=== PATIENT | female | born 1990 | race Caucasian/White ===

== ENCOUNTER 2016-09-30 14:16 | Emergency (ER) | payer OTHER ==
[~2016-09-30] VITALS: Ht 167.6 cm; Wt 72.6 kg
[~2016-09-30 14:16] MED LIST: ALPRAZOLAM0.5 M3 PO; ENDOCET 325 MG-1 TA1 PO; MOTRIN800 MG PO; OXYCODONE AND A1 TA7 PO; PERCOCET 325 MG1 TA2 PO; PHENERGAN25 M1 PO; SLOW FE45 MG PO; TRAMADOL50 MG PO; VICODIN5-300 PO; VYVANSE30 MG PO; ZOFRAN ODT4 MG PO
[2016-09-30] MEDS ORDERED: SERTRALINE HCL50 MG PO (14:32)
--- NOTE | 2016-09-30 14:48 | ED GI/GU/ABDOMINAL COMPLAINT ---
History of Present Illness General Chief Complaint: Abdominal Pain/Flank Pain Stated Complaint: R SIDED FLANK/RLQ ABD PAIN Source: patient Exam Limitations: no limitations Vital Signs & Intake/Output Vital Signs & Intake/Output Vital Signs Date Time Temp Pulse Resp B/P Pulse O2 O2 Flow FiO2 Ox Delivery Rate 09/30 2224 97.9 58 16 121/55 98 Room Air 09/30 1641 97.5 63 18 121/56 99 Room Air 09/30 1509 Room Air 09/30 1419 98.4 86 20 151/84 99 Room Air Allergies Coded Allergies: MDX - Amoxicillin (AMOXICILLIN) (CHILDHOOD REACTION PER PT 02/07/15) Reconcile Medications OXYCODONE HCL/ACETAMINOPHEN (Oxycodone-Acetaminophen 5-325) 5 MG-325 MG TABLET 1 TAB PO PRN PAIN (Reported) Sertraline HCl 50 MG TABLET 1 TAB PO DAILY MENTAL HEALTH (Reported) Triage Note: PT TO ED C/O RLQ PAIN SINCE YESTERDAY. C/O N/V, DENIES DIARRHEA. POOR PO INTAKE. PT SAW HER PCP YESTERDAY, WAS GIVEN RX'S FOR PAIN AND NAUSEA AND TOLD TO COME TO ED IF PAIN GOT WORSE. AFEBRILE. Triage Nurses Notes Reviewed? yes ? n Is pt currently ? No Onset: Abrupt Duration: day(s): (2), constant, continues in ED Timing: recent history Quality/Severity: moderate, sharpness, severe Location: right lower quadrant Radiation: no radiation Activities at Onset: none No Modifying Factors: none HPI: 26 FEMALE COMES INTO EMERGENCY ROOM WITH RIGHT LOWER abdominal pain. Patient reports that yesterday she was having some general periumbilical pain. Pain is now localized over the last 12 hours to the right lower quadrant. She has not eaten since yesterday. Associated vomiting. Patient denies any vaginal discharge. Patient saw her doctor prior to coming in and get a urine sample and a pelvic exam which were reportedly normal. Last time she ate was yesterday. Patient examined difficulty with any type of ambulation. (SHAHBAZ WOLFE) Past History Travel History Traveled to [place] past 21 day No Medical History Any Pertinent Medical History? see below for history Neurological: NONE EENT: NONE Cardiovascular: NONE Respiratory: NONE Gastrointestinal: H PYLORI Hepatic: NONE Renal: NONE Musculoskeletal: NONE Psychiatric: NONE Endocrine: NONE Blood Disorders: NONE Cancer(s): NONE MOTOR BRAKEMAN/Reproductive: NONE Surgical History Surgical History: N Psychosocial History What is your primary language Trinidadian Tobacco Use: Never used ETOH Use: denies use Illicit Drug Use: denies illicit drug use Family History Hx Contributory? No (SHAHBAZ WOLFE) Review of Systems Review of Systems Constitutional: Reports: no symptoms. EENTM: Reports: no symptoms. Respiratory: Reports: no symptoms. Cardiovascular: Reports: no symptoms. GI: Reports: see HPI. Genitourinary: Reports: no symptoms. Musculoskeletal: Reports: no symptoms. Skin: Reports: no symptoms. Neurological/Psychological: Reports: no symptoms. Hematologic/Endocrine: Reports: no symptoms. Immunologic/Allergic: Reports: no symptoms. All Other Systems: Reviewed and Negative (SHAHBAZ WOLFE) Physical Exam Physical Exam General Appearance: well developed/nourished, alert, awake, anxious Head: atraumatic, normal appearance Eyes: Bilateral: normal appearance, EOMI. Ears, Nose, Throat, Mouth: hearing grossly normal, moist mucous membrane Neck: normal inspection, full range of motion Respiratory: normal breath sounds, no respiratory distress Cardiovascular: regular rate/rhythm Gastrointestinal: soft, rebound, tenderness (rlq) Back: normal inspection Extremities: normal range of motion Neurologic/Psych: awake, alert, oriented x 3, normal gait Skin: intact, normal color Core Measures ACS in differential dx? No Severe Sepsis Present: No Septic Shock Present: No (SHAHBAZ WOLFE) Progress Differential Diagnosis: appendicitis, biliary colic, colon cancer, diverticulitis, ectopic , intrauterine , kidney stone, ovarian cyst, ovarian torsion, pancreatitis, PID/cervicitis, peptic ulcer, PUD/GERD, perforated viscous, threatened AB, UTI/pyelo Plan of Care: Orders Procedure Date/time Status URINE 09/30 1448 Complete URINALYSIS 09/30 1448 Complete LIPASE 09/30 1448 Complete COMPREHENSIVE METABOLIC PANEL 09/30 1448 Complete CBC WITHOUT DIFFERENTIAL 09/30 1448 Complete Laboratory Tests 09/30/16 1455: Anion Gap 11, Estimated GFR > 60, BUN/Creatinine Ratio 20.0, Glucose 99, Calcium 9.6, Total Bilirubin 0.5, AST 22, ALT 23, Alkaline Phosphatase 50, Total Protein 6.9, Albumin 4.3, Globulin 2.6, Albumin/Globulin Ratio 1.7, Lipase 137, CBC w Diff NO MAN DIFF REQ, RBC 4.30, MCV 93.4, MCH 31.8 H, RDW 12.0, MPV 8.9, Gran % 66.1, Lymphocytes % 27.9, Monocytes % 4.3, Eosinophils % 1.2, Basophils % 0.5, Absolute Granulocytes 4.6, Absolute Lymphocytes 2.0, Absolute Monocytes 0.3, Absolute Eosinophils 0.1, Absolute Basophils 0, PUBS MCHC 34.0, Urine Color YEL, Urine Clarity CLEAR, Urine pH 6.5, Ur Specific [place] 1.020, Urine Protein NEG, Urine Ketones NEG, Urine Nitrite NEG, Urine Bilirubin NEG, Urine Urobilinogen 0.2, Ur Leukocyte Esterase NEG, Ur Microscopic EXAM NOT REQUIRED, Urine Hemoglobin NEG, Urine Glucose NEG, Urine Test NEGATIVE Diagnostic Imaging: Viewed by Me: CT Scan, Ultrasound. Discussed w/RAD: CT Scan, Ultrasound. Radiology Impression: SERVICE DATE: 09/30/16 EXAM TYPE: CAT - CT ABD & PELVIS W IV CONTRAST EXAMINATION: CT ABDOMEN AND PELVIS WITH CONTRAST CLINICAL INFORMATION: Tenderness at McBurney's point, rebound tenderness, high suspicion for appendicitis. COMPARISON: None. TECHNIQUE: Multidetector volumetric imaging was performed of the abdomen and pelvis before and after the IV administration of 95 mL of Omnipaque 320 intravenous contrast. Sagittal and coronal reformatted images were obtained on the technologist's workstation. DLP: 463.37 mGy-cm. FINDINGS: LUNG BASES: The visualized lung bases are unremarkable. LIVER, GALLBLADDER, AND BILIARY TREE: The liver is normal in size, shape, and attenuation. No focal hepatic lesion or biliary ductal dilatation is present. The gallbladder is unremarkable with no evidence of radiopaque gallstones, gallbladder wall thickening, or obvious pericholecystic inflammatory changes. PANCREAS: Unremarkable. SPLEEN: Unremarkable. ADRENAL GLANDS: Unremarkable. KIDNEYS AND URETERS: The kidneys are normal in size, shape, and attenuation. No hydronephrosis, hydroureter, or calculi seen. No perinephric stranding. BLADDER: Unremarkable. GASTROINTESTINAL TRACT: The small and large bowel are unremarkable. The appendix is air-filled and unremarkable. No appendicolith is seen. The appendix is best seen on axial images 66 through 60 and coronal images 44 through 41. ABDOMINAL WALL: No significant hernia is appreciated. LYMPH NODES : Normal. VASCULAR: Unremarkable. PELVIC VISCERA: A normal anteverted uterus is seen. No abnormal adnexal mass is seen. OSSEOUS STRUCTURES: Scoliosis convex to the left is present. IMPRESSION: No evidence of appendicitis. DICTATED BY: CALDERON OROZCO MD DATE/TIME DICTATED:09/30/161554 [employer]IVATE MORTGAGE BANKER SAFE:JUSTYN DATE/TIME TRANSCRIBED:09/30/161554, SERVICE DATE: 09/30/16 EXAM TYPE: US - US-TRANSVAGINAL EXAMINATION: US TRANSVAGINAL CLINICAL INFORMATION: 26-year- old female with right lower quadrant pain. LMP 2 weeks ago. COMPARISON: CT of the abdomen and pelvis done this afternoon. TECHNIQUE: Grayscale and color Doppler imaging combined with pulse-wave Doppler interrogation and spectral analysis. Transabdominal and endovaginal probes were employed. FINDINGS: The uterus is anteverted and normal in shape and size. Uterus measures 7.5 x 4.1 x 5.5 cm. Endometrial thickness is 1 cm. The appearance is consistent with the proliferative phase of menstruation. The right ovary measures 3.3 x 2.5 x 3.4 cm. There are 3 distinct functional cysts in the right ovary. Blood flow is normal. Left ovary measures 2.9 x 1.6 x 2.2 cm. Blood flow is normal. A single functional cyst is present in this ovary. There is no free fluid. IMPRESSION: Unremarkable examination. Initial ED EKG: none Comments: 09/30/2016 7:13:30 PM Surgery is currently in the OR and will be evaluating the patient after they get out of the OR. I spoke with radiology again and they confirm that the entire appendix is normal. Best viewed on slides 43/44 in the 104 image group. Patient is in agreement with plan. Patient understands that she'll be waiting a few hours for surgery to come and evaluate her. 09/30/2016 9:50:37 PM Still waiting on surgery. Surgery is still in the OR. 09/30/2016 10:22:29 PM I went back in to reevaluate the patient. She feels significantly better. Repeat abdominal exam has much improved. No more rebound tenderness. Very mild pain in the right lower quadrant. Patient has not received pain medication in over an hour. I discussed with patient the options. Patient was offered to stay and wait for surgery still but she rather go home. I explained to the patient that we should do a clear liquid diet for the next 24 hours and that she needs to return immediately if she has any worsening of symptoms. If symptoms in the right lower quadrant persist and she needs to return for repeat blood work and surgery consultation. Patient already had an outpatient pelvic exam performed that was normal according to the patient. Patient understands and agrees with plan of care. Patient would rather go home at this time since she feels significantly better. case discussed with dr guallpa. (TREVOR ROBERTS,SHAHBAZ) Departure Departure Disposition: HOME OR SELF CARE Condition: Stable Clinical Impression Primary Impression: Abdominal pain Referrals: FLORENCIO GARVEY,TANNER Dubois (PCP/Family) Additional Instructions: Return to the emergency room immediately if any concerns worsening symptoms. Clear liquid diet for the next 24 hours. If your symptoms of right lower abdominal pain persist or get worse she needs to return for further evaluation. Currently there is no evidence of appendicitis. There is no ovarian abnormality. However if symptoms persist you will require a surgical consultation. Take Motrin 800 mg 3 times a day. Please go over all results of today's visit with your primary care doctor. Contact your primary care doctor to let them know you were here in the emergency room. There may be nonspecific findings which may not be related to your visit today here in the emergency room but may require further evaluation and chronic monitoring by your primary care doctor. If you had a laceration today the chance of foreign body always remains. You should follow-up with your primary care doctor for recheck in 3-5 days for a wound check. If you had an x-ray done there is a chance that a fracture could have been missed on initial read and you should follow-up with your primary care doctor for repeat x-rays if symptoms persist. If your blood pressure was elevated here in the emergency room please have rechecked by her primary care doctor within the next 48 hours by your primary care doctor. If you were prescribed a narcotic here in the emergency room or any type of controlled substances you're not allowed to drive while taking this medication or operate any type of heavy machinery. Narcotics can make you feel lightheaded dizziness nausea and can cause constipation. You may need to picking belt operator a stool softener. Thank you for choosing [facility] emergency room. Please return to the emergency room immediately if you have any other concerns worsening of symptoms. Departure Forms: Customer Survey General Discharge Information (SHAHBAZ WOLFE) PA/TRUCK RAILROAD AND BUS MOTOR MECHANIC Co-Sign Statement Statement: ED Attending supervision documentation- [] I saw and evaluated the patient. I have also reviewed all the pertinent lab results and diagnostic results. I agree with the findings and the plan of care as documented in the PA's/TRUCK RAILROAD AND BUS MOTOR MECHANIC's documentation. [x] I have reviewed the ED Record and agree with the PA's/TRUCK RAILROAD AND BUS MOTOR MECHANIC's documentation. [] Additions or exceptions (if any) to the PAs/TRUCK RAILROAD AND BUS MOTOR MECHANIC's note and plan are summarized below: [] (MARTHA GARVEY,JUAN Holden)
[2016-09-30 15:07] LABS: ABSOLUTE BASOPHIL COUNT 0 /CUMM (0.0-0.2); ABSOLUTE EOSINOPHIL COUNT 0.1 /CUMM (0.0-0.7); ABSOLUTE GRANULOCYTE CT 4.6 /CUMM (1.4-6.5); ABSOLUTE MONOCYTE COUNT 0.3 /CUMM (0.10-0.60); BASOPHIL % 0.5 % (0.0-2.0); EOSINOPHIL % 1.2 % (0-5); GRANULOCYTE % 66.1 % (42.2-75.2); HEMATOCRIT 40.2 % (37-47); MEAN CORPUSCULAR HGB 31.8 PG (27.0-31.0); MEAN CORPUSCULAR VOLUME 93.4 FL (81.0-99.0); MEAN PLATELET VOLUME 8.9 FL (7.4-10.4); PLATELET COUNT 190 /CUMM (130-400)
--- NOTE | 2016-09-30 17:10 | CT SCAN REPORT ---
EXAMINATION: CT ABDOMEN AND PELVIS WITH CONTRAST CLINICAL INFORMATION: Tenderness at McBurney's point, rebound tenderness, high suspicion for appendicitis. COMPARISON: None. TECHNIQUE: Multidetector volumetric imaging was performed of the abdomen and pelvis before and after the IV administration of 95 mL of Omnipaque 320 intravenous contrast. Sagittal and coronal reformatted images were obtained on the technologist's workstation. DLP: 463.37 mGy-cm. FINDINGS: LUNG BASES: The visualized lung bases are unremarkable. LIVER, GALLBLADDER, AND BILIARY TREE: The liver is normal in size, shape, and attenuation. No focal hepatic lesion or biliary ductal dilatation is present. The gallbladder is unremarkable with no evidence of radiopaque gallstones, gallbladder wall thickening, or obvious pericholecystic inflammatory changes. PANCREAS: Unremarkable. SPLEEN: Unremarkable. ADRENAL GLANDS: Unremarkable. KIDNEYS AND URETERS: The kidneys are normal in size, shape, and attenuation. No hydronephrosis, hydroureter, or calculi seen. No perinephric stranding. BLADDER: Unremarkable. GASTROINTESTINAL TRACT: The small and large bowel are unremarkable. The appendix is air-filled and unremarkable. No appendicolith is seen. The appendix is best seen on axial images 66 through 60 and coronal images 44 through 41. ABDOMINAL WALL: No significant hernia is appreciated. LYMPH NODES: Normal. VASCULAR: Unremarkable. PELVIC VISCERA: A normal anteverted uterus is seen. No abnormal adnexal mass is seen. OSSEOUS STRUCTURES: Scoliosis convex to the left is present. IMPRESSION: No evidence of appendicitis.
--- NOTE | 2016-09-30 18:44 | ULTRASOUND REPORT ---
EXAMINATION: US TRANSVAGINAL CLINICAL INFORMATION: 26-year-old female with right lower quadrant pain. LMP 2 weeks ago. COMPARISON: CT of the abdomen and pelvis done this afternoon. TECHNIQUE: Grayscale and color Doppler imaging combined with pulse-wave Doppler interrogation and spectral analysis. Transabdominal and endovaginal probes were employed. FINDINGS: The uterus is anteverted and normal in shape and size. Uterus measures 7.5 x 4.1 x 5.5 cm. Endometrial thickness is 1 cm. The appearance is consistent with the proliferative phase of menstruation. The right ovary measures 3.3 x 2.5 x 3.4 cm. There are 3 distinct functional cysts in the right ovary. Blood flow is normal. Left ovary measures 2.9 x 1.6 x 2.2 cm. Blood flow is normal. A single functional cyst is present in this ovary. There is no free fluid. IMPRESSION: Unremarkable examination.
[2016-09-30 22:24] VITALS: BP 121/55
[2016-10-01] MEDS ORDERED: TRAMADOL HCL50 M1 PO (17:01)
[2016-10-01] MEDS ORDERED: SEASONIQUE 0.11 EACH PO (17:02)
[2016-10-01] MEDS ORDERED: PROMETHAZINE HC25 M3 PO ×2 (17:48→18:29)
[2016-10-01] MEDS ORDERED: NORCO 5-325 TA1 EACH PO ×2 (17:48→18:29)
== END 2016-09-30 22:29 ==
LOC: ERH 14:16
PROVIDERS: Physician Assistant Medical
DX: R10.31 Right lower quadrant pain (principal)
CPT/HCPCS: 74177; 81003; 81025; 96361; 96374; 96375; 96376; J2405; J2550; J2765

== ENCOUNTER 2016-10-01 11:21 | Emergency (ER) | payer OTHER ==
[~2016-10-01] VITALS: Ht 168.9 cm; Wt 74.8 kg
[~2016-10-01 11:21] MED LIST changes: +SERTRALINE HCL50 MG PO
--- NOTE | 2016-10-01 11:57 | ED GI/GU/ABDOMINAL COMPLAINT ---
History of Present Illness General Chief Complaint: Abdominal Pain/Flank Pain Stated Complaint: APPENDICITIS/SEEN HERE YESTERDAY Source: patient, old records Exam Limitations: no limitations Vital Signs & Intake/Output Vital Signs & Intake/Output Vital Signs Date Time Temp Pulse Resp B/P Pulse O2 O2 Flow FiO2 Ox Delivery Rate 10/01 1600 97.7 58 16 102/58 97 Room Air 10/01 1127 97.1 65 20 136/81 99 Room Air Allergies Coded Allergies: amoxicillin (Intermediate, HIVES 10/01/16) Reconcile Medications L-Norgest/E.estradion-E.estrad ([place] 0.15-0.03-0.01 Tab) 0.15 MG-30 MCG ( 84)/10 MCG (7) TBDSPK.[id number] 1 TAB PO DAILY CONTROL (Reported) Sertraline HCl 50 MG TABLET 1 TAB PO DAILY MENTAL HEALTH (Reported) Tramadol HCl 50 MG TABLET 1 TAB PO TID PRN PAIN (Reported) Triage Note: TRIAGE: PT TO ER C/C RLQ ABD PAIN, ONSET YESTERDAY. WAS SEEN HERE FOR SAME LAST NIGHT. STATES THEY WANTED HER TO SEE THE SURGEON BUT IT WAS GOING TO BE A LONGER WAIT AND SINCE SHE WAS FEELING BETTER AT THAT TIME IF SHE WANTED TO GO HOME SHE COULD. Triage Nurses Notes Reviewed? yes ? n Is pt currently ? No HPI: Patient presents for evaluation of severe right-sided abdominal pain. She was evaluated yesterday in the emergency department for the same pain but no clear etiology was determined. She was told to return to the emergency department for reevaluation if she did not improve. She states it is a constant severe sharp stabbing pain with associated diaphoresis. She has also had multiple episodes of non-bloody nonbilious vomiting and urinary frequency. She denies diarrhea fever or cold symptoms. The pain does not change with eating. 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 She drinks alcohol rarely and states she uses marijuana occasionally (last used one week ago). Past History Travel History Traveled to [place] past 21 day No Medical History Any Pertinent Medical History? 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 No Review of Systems Review of Systems Constitutional: Reports: no symptoms. EENTM: Reports: no symptoms. Respiratory: Reports: no symptoms. Cardiovascular: Reports: no symptoms. GI: Reports: see HPI. Genitourinary: Reports: no symptoms. Musculoskeletal: Reports: no symptoms. Skin: Reports: no symptoms. Neurological/Psychological: Reports: no symptoms. Hematologic/Endocrine: Reports: no symptoms. Immunologic/Allergic: Reports: no symptoms. All Other Systems: Reviewed and Negative Physical Exam Physical Exam Gastrointestinal: SEE BELOW Comments: Gen.: Well-nourished, well-developed, no acute respiratory distress. Mild to moderate discomfort secondary to right-sided abdominal pain. Head: Normocephalic, atraumatic. Eyes: Normal inspection bilaterally Ears: Normal inspection bilaterally Nose: Normal inspection Throat/mouth : Moist mucosa Neck: Supple, full range of motion, no goiter Heart: Regular rate and rhythm, no murmurs rubs or gallops Lungs: Clear to auscultation bilaterally with normal air entry Chest: Nontender Back: Normal range of motion Abdomen: Soft, right upper quadrant abdominal tenderness with brief voluntary guarding but no rebound, no palpable masses, nondistended, normal bowel sounds Extremities: Normal range of motion grossly, equal radial pulses, no cyanosis clubbing or edema Neurologic: Cranial nerves grossly intact, speech is clear Skin: warm and dry Psychiatric: Calm, cooperative, no apparent delusions or hallucinations Core Measures ACS in differential dx? No Severe Sepsis Present: No Septic Shock Present: No Progress Differential Diagnosis: BILIARY COLIC, RENAL COLIC, HEPATITIS, PANCREATITIS, PEPTIC ULCER DISEASE Plan of Care: Orders Procedure Date/time Status URINALYSIS 10/01 1156 Complete LIPASE 10/01 1156 Complete COMPREHENSIVE METABOLIC PANEL 10/01 1156 Complete CBC WITHOUT DIFFERENTIAL 10/01 115 Complete Laboratory Tests 10/01/16 1201: Urine Color YEL, Urine Clarity CLEAR, Urine pH 6.0, Ur Specific [place] 1.010, Urine Protein NEG, Urine Ketones NEG, Urine Nitrite NEG, Urine Bilirubin NEG, Urine Urobilinogen 0.2, Ur Leukocyte Esterase NEG, Ur Microscopic EXAM NOT REQUIRED, Urine Hemoglobin NEG, Urine Glucose NEG 10/01/16 1200: Anion Gap 14, Estimated GFR > 60, BUN/Creatinine Ratio 18.8, Glucose 78, Calcium 9.2, Total Bilirubin 0.5, AST 21, ALT 27, Alkaline Phosphatase 43, Total Protein 6.3, Albumin 3.8, Globulin 2.5, Albumin/Globulin Ratio 1.5, Lipase 132, CBC w Diff NO MAN DIFF REQ, RBC 4.35, MCV 93.4, MCH 31.9 H, RDW 12.4, MPV 9.5, Gran % 62.1, Lymphocytes % 30.7, Monocytes % 5.2, Eosinophils % 1.7, Basophils % 0.3, Absolute Granulocytes 3.8, Absolute Lymphocytes 1.9, Absolute Monocytes 0.3, Absolute Eosinophils 0.1, Absolute Basophils 0, PUBS MCHC 34.1 Diagnostic Imaging: Discussed w/RAD: CT Scan. Radiology Impression: PATIENT: LUZ MARIA BRAUN PRESENT AGE: 26 PATIENT ACCOUNT NO: [id number] : 91 LOCATION: [facility] ORDERING PHYSICIAN: RAY HIRSCH MD SERVICE DATE: 10/01/16 EXAM TYPE: CAT - CT ABD & PELVIS W ORAL & IV CO EXAMINATION: CT ABDOMEN AND PELVIS WITH CONTRAST CLINICAL INFORMATION: Right-sided abdominal pain. COMPARISON: CT abdomen and pelvis from 02/07/2015 and 09/30/2016. TECHNIQUE: Multidetector volumetric imaging was performed of the abdomen and pelvis before and after the IV administration of 95 mL of Optiray 320 intravenous contrast. Sagittal and coronal reformatted images were obtained on the technologist's workstation. DLP: 423 mGy-cm. FINDINGS: LUNG BASES: 0.3 cm noncalcified nodule within the left lower lobe is unchanged compared to 02/07/2015, consistent with a benign nodule. LIVER, GALLBLADDER, AND BILIARY TREE: Normal. PANCREAS: Normal. SPLEEN: Normal. ADRENAL GLANDS: Normal. KIDNEYS AND URETERS: The kidneys are normal in size, shape, and attenuation. No hydronephrosis, hydroureter, or calculi. No perinephric stranding. BLADDER: Unremarkable. GASTROINTESTINAL TRACT: Loops of bowel remain normal in caliber. The terminal ileum is normal. No evidence of acute inflammation or obstruction along the gastrointestinal tract. The appendix remains normal in size and measures 0.5 cm diameter. There is no evidence of appendiceal wall thickening or periappendiceal fat stranding. No ascites or pneumoperitoneum. ABDOMINAL WALL: Unremarkable. LYMPH NODES: No pathologic sized lymph nodes within the abdomen or pelvis. VASCULAR: Abdominal aorta is normal in caliber and the celiac trunk, SMA, CHIVO and renal arteries are widely patent. PELVIC VISCERA: The uterus and ovaries are normal in appearance. There are no pathologic fluid collections within the pelvis. Multiple phleboliths are present within the lower pelvis. OSSEOUS STRUCTURES: No acute osseous abnormalities. IMPRESSION: No evidence of appendicitis. No acute imaging findings within the abdomen or pelvis compared to 09/30/2016. 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 < Electronically signed in Other Vendor System> SIGNED BY: ROSY MORSE MD 10/01/16 3033 Initial ED EKG: none Comments: 10/01/2016 12:56:54 PM they since case discussed with Dr. Hunter, who has reviewed the patient's prior ED visit and will discuss the patient's case with the radiologist regarding additional imaging studies. 10/01/2016 1:36:16 PM pt evaluated by Dr. Hunter. CAT scan pending. 10/01/2016 5:12:29 PM patient's case discussed with Dr. Hunter. The patient 's abdominal pain is unclear at this point. However patient appears stable for outpatient management. Departure Departure Disposition: HOME OR SELF CARE Condition: Stable Clinical Impression Primary Impression: Nonspecific abdominal pain Referrals: TANNER MATIAS MD (PCP/Family) Additional Instructions: Phenergan as needed for nausea or vomiting, [place] as needed for pain. Follow-up with your primary care doctor within 48 hours for reevaluation. Return if any concerns or sudden worsening. Please note that there might be incidental findings in your evaluation that are unrelated to the current emergency department visit. Please notify your primary care doctor about this emergency department visit in order to obtain and review all of the testing performed so that these incidental findings can be monitored as needed. If you had an x-ray performed, please understand that some fractures may not be seen on the initial set of x-rays. If your symptoms persist you might need a repeat set of x-rays to check for such a fracture. If you had a laceration evaluated, please understand that foreign bodies such as glass or wood may not be visible to the naked eye or on plain x-rays. If the wound becomes red, swollen, increasingly more painful or if there is any drainage from the wound, please have it reevaluated by a physician for the possibility of a retained foreign body. Thank you for choosing the [facility] Emergency Department for your care. It was a pleasure to serve you today. Ray Hirsch M.D. [facility] Departure Forms: Customer Survey General Discharge Information
[2016-10-01 12:37] LABS: ABSOLUTE BASOPHIL COUNT 0 /CUMM (0.0-0.2); ABSOLUTE EOSINOPHIL COUNT 0.1 /CUMM (0.0-0.7); ABSOLUTE GRANULOCYTE CT 3.8 /CUMM (1.4-6.5); ABSOLUTE LYMPH COUNT 1.9 /CUMM (1.2-3.4); ABSOLUTE MONOCYTE COUNT 0.3 /CUMM (0.10-0.60); BASOPHIL % 0.3 % (0.0-2.0); EOSINOPHIL % 1.7 % (0-5); GRANULOCYTE % 62.1 % (42.2-75.2); HEMATOCRIT 40.6 % (37-47); MEAN CORPUSCULAR HGB 31.9 PG (27.0-31.0); MEAN CORPUSCULAR HGB CONC 34.1 G/DL (33.0-37.0); MEAN CORPUSCULAR VOLUME 93.4 FL (81.0-99.0); MEAN PLATELET VOLUME 9.5 FL (7.4-10.4); PLATELET COUNT 185 /CUMM (130-400); RBC DISTRIBUTION WIDTH 12.4 % (11.5-14.5); RED BLOOD CELL CT 4.35 /CUMM (4.20-5.40); WHITE BLOOD CELL COUNT 6.1 /CUMM (4.8-10.8)
--- NOTE | 2016-10-01 16:09 | Cons- General Surgery ---
See Addendum General Information and HPI Consulting Request Date of Consult: 10/01/16 Requested By: Duran Hirsch MD Source of Information: patient History of Present Illness: CC: abdominal pain HPI: 26-year-old nondiabetic nonsmoker here again the ER from last night for persistent right lower quadrant pain, the pain started yesterday the day prior she noted decreased appetite but no pain. Initially the pain was more in the middle but then more in the right lower quadrant she doesn't recall pain like this before she has a history of workup and treatment for H. pylori no recent flulike symptoms no recent antibiotics her mother had appendicitis when she was younger, no unusual meals or straining she had some sweats overnight didn't check if fever, she also had nausea vomiting several times she says the pain is worse today than yesterday it affects her when walking. Last menstrual period 5 days ago. Otherwise no changes in bowel habits or weight. I've reviewed the [facility]. No history of GERD, PUD, bleeding problems, heart disease or issues with anesthesia. 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 Surgical History Pertinent Surgical History: none Psychosocial History ETOH Use: occasional use Illicit Drug Use: denies illicit drug use Review of Systems Review of Systems: Constitutional: No fever or weight loss ENMT: No sore throat Cardiovascular: No chest pain, palpitations or leg swelling Respiratory: No shortness of breath, cough, or sputum or dyspnea on exertion GI: No GERD or bleeding per rectum : No dysuria or hematuria, but feels like she doesn't fully empty her bladder when she PAs since this pain started Musculoskeletal: No new muscle weakness, bone or joint pain Skin / Breast: No jaundice, rashes or itching Psychiatric: No history of drug or alcohol abuse no depression or anxiety Hematologic / lymphatic system: No problems with excessive bleeding, bruising, or blood clots Exam & Diagnostic Data Vital Signs and I&O Vital Signs Date Time Temp Pulse Resp B/P Pulse O2 O2 Flow FiO2 Ox Delivery Rate 10/01 1600 97.7 58 16 102/58 97 Room Air 10/01 1127 97.1 65 20 136/81 99 Room Air Intake & Output 10/01 1600 10/01 0800 10/01 0000 09/30 1600 09/30 0800 09/30 0000 Intake Total 50 Output Total Balance 50 Intake, IV 50 Patient 165 lb Weight Physical Exam: Constitutional: pleasant, no acute distress, conversant Eyes: sclera anicteric ENMT: ears and nose atraumatic, moist mucous membranes, good dentition, no lip lesions Neck: Supple, trachea is midline, no cervical or supraclavicular adenopathy and no palpable thyromegaly Cardiovascular: S1, S2, no murmurs, no peripheral edema Respiratory: clear to auscultation with normal respiratory effort and no intercostal retractions GI: abdomen soft, right lower quadrant tender to moderate palpation, no right upper quadrant tenderness, nondistended, no palpable hepatosplenomegaly Extremities / lymphatics: symmetrically warm, free range of motion no peripheral edema, no cervical, supraclavicular, axillary, or inguinal adenopathy Musculoskeletal: Did not evaluate gait and station, no digital cyanosis, good muscle strength and tone no atrophy, motor grossly 5 out of 5 throughout Skin: no jaundice, no rashes warm, nondiaphoretic, no areas of erythema or induration Psychiatric: mood and affect are appropriate and alert and oriented to person place and time Last 24 Hours of Labs: Laboratory Tests 10/01 10/01 1201 1200 Chemistry Sodium (137 - 145 mmol/L) 140 Potassium (3.5 - 5.1 mmol/L) 4.4 Chloride (98 - 107 mmol/L) 100 Carbon Dioxide (22 - 30 mmol/L) 27 Anion Gap (5 - 16) 14 BUN (7 - 17 mg/dL) 15 Creatinine (0.5 - 1.0 mg/dL) 0.8 Estimated GFR (>60 ml/min) > 60 BUN/Creatinine Ratio (7 - 25 %) 18.8 Glucose (65 - 99 mg/dL) 78 Calcium (8.4 - 10.2 mg/dL) 9.2 Total Bilirubin (0.2 - 1.3 mg/dL) 0.5 AST (14 - 36 U/L) 21 ALT (9 - 52 U/L) 27 Alkaline Phosphatase (<127 U/L) 43 Total Protein (6.3 - 8.2 g/dL) 6.3 Albumin (3.5 - 5.0 g/dL) 3.8 Globulin (1.9 - 4.2 gm/dL) 2.5 Albumin/Globulin Ratio (1.1 - 2.2 %) 1.5 Lipase (23 - 300 U/L) 132 Hematology CBC w Diff NO MAN DIFF REQ WBC (4.8 - 10.8 /CUMM) 6.1 RBC (4.20 - 5.40 /CUMM) 4.35 Hgb (12.0 - 16.0 G/DL) 13.9 Hct (37 - 47 %) 40.6 MCV (81.0 - 99.0 FL) 93.4 MCH (27.0 - 31.0 PG) 31.9 H RDW (11.5 - 14.5 %) 12.4 Plt Count (130 - 400 /CUMM) 185 MPV (7.4 - 10.4 FL) 9.5 Gran % (42.2 - 75.2 %) 62.1 Lymphocytes % (20.5 - 51.1 %) 30.7 Monocytes % (1.7 - 9.3 %) 5.2 Eosinophils % (0 - 5 %) 1.7 Basophils % (0.0 - 2.0 %) 0.3 Absolute Granulocytes (1.4 - 6.5 /CUMM) 3.8 Absolute Lymphocytes (1.2 - 3.4 /CUMM) 1.9 Absolute Monocytes (0.10 - 0.60 /CUMM) 0.3 Absolute Eosinophils (0.0 - 0.7 /CUMM) 0.1 Absolute Basophils (0.0 - 0.2 /CUMM) 0 PUBS MCHC (33.0 - 37.0 G/DL) 34.1 Urines Urine Color (YEL,AMB,STR) YEL Urine Clarity (CLEAR) CLEAR Urine pH (5.0 - 8.0) 6.0 Ur Specific [place] (1.001 - 1.035) 1.010 Urine Protein (NEG,<30 MG/DL) NEG Urine Ketones (NEG) NEG Urine Nitrite (NEG) NEG Urine Bilirubin (NEG) NEG Urine Urobilinogen (0.1 - 1.0 EU/dl) 0.2 Ur Leukocyte Esterase (NEG) NEG Ur Microscopic EXAM NOT REQUIRED Urine Hemoglobin (NEG) NEG Urine Glucose (N MG/DL) NEG I reviewed the CT scan of her abdomen and pelvis on PACS myself from yesterday night also compared it to a previous CT from 2015 both show a curled not thickened or inflamed gas filled appendix in the right lower quadrant. Assessment/Plan Assessment/Plan Impression is right lower quadrant pain suspicious for acute appendicitis but there is no obvious radiologic evidence of, no leukocytosis and she is not febrile she doesn't recall exactly but on review 2015 she also had imaging which showed a normal appendix. Some ovarian cysts are noted but these could be physiologic there is no obvious free fluid. At this point there are no systemic signs of sepsis or obvious signs of imminent rupture so after discussion will 2 more workup have to weigh the risks benefits of another CT scan versus an operation for normal appendix, if so her pain could persist. We await repeat CT scan with IV and oral contrast. If it is appendicitis there should be some change seen on imaging since her pain is worse in it's been 2 days now without treatment. Problem List: 1. Right lower quadrant pain Consult Acknowledgment - Thank you for your consult request.
--- NOTE | 2016-10-01 16:45 | CT SCAN REPORT ---
EXAMINATION: CT ABDOMEN AND PELVIS WITH CONTRAST CLINICAL INFORMATION: Right-sided abdominal pain. COMPARISON: CT abdomen and pelvis from 02/07/2015 and 09/30/2016. TECHNIQUE: Multidetector volumetric imaging was performed of the abdomen and pelvis before and after the IV administration of 95 mL of Optiray 320 intravenous contrast. Sagittal and coronal reformatted images were obtained on the technologist's workstation. DLP: 423 mGy-cm. FINDINGS: LUNG BASES: 0.3 cm noncalcified nodule within the left lower lobe is unchanged compared to 02/07/2015, consistent with a benign nodule. LIVER, GALLBLADDER, AND BILIARY TREE: Normal. PANCREAS: Normal. SPLEEN: Normal. ADRENAL GLANDS: Normal. KIDNEYS AND URETERS: The kidneys are normal in size, shape, and attenuation. No hydronephrosis, hydroureter, or calculi. No perinephric stranding. BLADDER: Unremarkable. GASTROINTESTINAL TRACT: Loops of bowel remain normal in caliber. The terminal ileum is normal. No evidence of acute inflammation or obstruction along the gastrointestinal tract. The appendix remains normal in size and measures 0.5 cm diameter. There is no evidence of appendiceal wall thickening or periappendiceal fat stranding. No ascites or pneumoperitoneum. ABDOMINAL WALL: Unremarkable. LYMPH NODES: No pathologic sized lymph nodes within the abdomen or pelvis. VASCULAR: Abdominal aorta is normal in caliber and the celiac trunk, SMA, CHIVO and renal arteries are widely patent. PELVIC VISCERA: The uterus and ovaries are normal in appearance. There are no pathologic fluid collections within the pelvis. Multiple phleboliths are present within the lower pelvis. OSSEOUS STRUCTURES: No acute osseous abnormalities. IMPRESSION: No evidence of appendicitis. No acute imaging findings within the abdomen or pelvis compared to 09/30/2016.
[2016-10-01] MEDS ORDERED: TRAMADOL HCL50 M1 PO (17:01)
[2016-10-01] MEDS ORDERED: SEASONIQUE 0.11 EACH PO (17:02)
[2016-10-01] MEDS ORDERED: PROMETHAZINE HC25 M3 PO ×2 (17:48→18:29)
[2016-10-01] MEDS ORDERED: NORCO 5-325 TA1 EACH PO ×2 (17:48→18:29)
[2016-10-01 18:24] VITALS: BP 119/71
== END 2016-10-01 18:37 ==
LOC: ERH 11:21
PROVIDERS: Emergency Medicine
DX: R10.11 Right upper quadrant pain (principal); R11.10 Vomiting, unspecified; R35.0 Frequency of micturition
CPT/HCPCS: 74177; 81003; 96374; 96375; 96376; J2550

== ENCOUNTER 2016-10-11 20:51 | Emergency (ER) | payer OTHER ==
[~2016-10-11] VITALS: Ht 170.2 cm; Wt 74.8 kg
[~2016-10-11 20:51] MED LIST changes: +NORCO 5-325 TA1 EACH PO; +PROMETHAZINE HC25 M3 PO; +SEASONIQUE 0.11 EACH PO; +TRAMADOL HCL50 M1 PO
[2016-10-11 20:55] VITALS: BP 152/90
[2016-10-11] MEDS ORDERED: CLEOCIN HCL300 M1 PO (21:39)
[2016-10-11] MEDS ORDERED: NORCO 5-325 TA1 EACH PO (21:39)
--- NOTE | 2016-10-11 21:40 | ED THROAT/DENTAL COMPLAINT ---
History of Present Illness General Chief Complaint: Sore Throat, Dental Pain Stated Complaint: ?DENTAL INFECTION, LEFT SIDED FACIAL SWELLING Source: patient, old records Exam Limitations: no limitations Vital Signs & Intake/Output Vital Signs & Intake/Output Vital Signs Date Time Temp Pulse Resp B/P Pulse O2 O2 Flow FiO2 Ox Delivery Rate 10/11 2054 97.1 91 18 152/90 97 Room Air Allergies Coded Allergies: amoxicillin (Intermediate, HIVES 10/01/16) Reconcile Medications Clindamycin HCl (Cleocin HCl) 300 MG CAPSULE 1 CAP PO TID infection Hydrocodone/Acetaminophen ([place] 5-325 Tablet) 5 MG-325 MG TABLET 1-2 TAB PO Q6P PRN PAIN Hydrocodone/Acetaminophen ([place] 5-325 Tablet) 5 MG-325 MG TABLET 1 TAB PO TID PRN pain L-Norgest/E.estradion-E.estrad ([place] 0.15-0.03-0.01 Tab) 0.15 MG-30 MCG ( 84)/10 MCG (7) [id number] 1 TAB PO DAILY CONTROL (Reported) Promethazine HCl 25 MG TABLET 1 TAB PO Q6P PRN NAUSEA/VOMITING Sertraline HCl 50 MG TABLET 1 TAB PO DAILY MENTAL HEALTH (Reported) Tramadol HCl 50 MG TABLET 1 TAB PO TID PRN PAIN (Reported) Triage Note: PT TO ED C/O DENTAL INFECTION TO LOWER LEFT TOOTH. PAIN AND SWELLING STARTED TODAY. DID HAVE ROOT CANAL 2 DAYS AGO ON RT UPPER SIDE. AFEBRILE IN TRIAGE Triage Nurses Notes Reviewed? yes : No Patient currently breastfeeds: No HPI: 26-year-old female here with complaints of left lower dental pain that started 2 days ago. She is 3 days status post root canal surgery on the right upper and has been doing well with that. She is on Tylenol with codeine however it is not helping her left lower dental pain. She previously has dental caries in that area and a dental extraction of the first molar. She has pain with eating and palpation. She denies any facial swelling fever or flulike illness. Pain is throbbing and severe Past History Travel History Traveled to [place] past 21 day No Medical History Any Pertinent Medical History? 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 No Review of Systems Review of Systems Constitutional: Reports: see HPI. EENTM: Reports: see HPI. Respiratory: Reports: no symptoms. Cardiovascular: Reports: no symptoms. GI: Reports: no symptoms. Genitourinary: Reports: no symptoms. Musculoskeletal: Reports: no symptoms. Skin: Reports: no symptoms. Neurological/Psychological: Reports: no symptoms. Hematologic/Endocrine: Reports: no symptoms. Immunologic/Allergic: Reports: no symptoms. All Other Systems: Reviewed and Negative Physical Exam Physical Exam General Appearance: well developed/nourished Mouth/Throat: pharynx normal Comments: Well-developed well-nourished no apparent distress. HEENT: Atraumatic, extraocular motion intact Intraoral exam, right side, no swelling, no abscess. Left side, lower, first molar is extracted previously, second molar has a filling in place, gum is mildly swollen bilaterally without any abscess. No facial swelling Neck: Supple, no lymphadenopathy Back: Nontender Respiratory: No respiratory distress Extremities: No edema, full range of motion Neuro: Alert and oriented x3 Psych: Mood affect normal, normal memory normal judgment. Skin: Warm and dry, Core Measures ACS in differential dx? No Severe Sepsis Present: No Septic Shock Present: No Progress Differential Diagnosis: aspirated tooth, carious tooth, epiglottitis, Ludwigs angina, meningitis, odontogenic abscess, timoteo-tonsillar abscess, pharyngeal for. body, stomatitis/gingivitis, strep pharyngitis, tooth fracture Plan of Care: Possible early dental infection, we'll place on Cleocin and patient is requesting Vicodin for her pain as this is where her in the past. She'll follow -up with her dentist, she has an appointment in 2 days Departure Departure Disposition: HOME OR SELF CARE Condition: Stable Clinical Impression Primary Impression: Dental infection Referrals: TANNER MATIAS MD (PCP/Family) Additional Instructions: Follow-up with your dentist in next few days. Take antibiotics as directed for possible infection and take Vicodin as needed for pain Departure Forms: Customer Survey General Discharge Information Prescriptions: Current Visit Scripts Clindamycin HCl (Cleocin HCl) 1 CAP PO TID #21 CAP Hydrocodone/Acetaminophen ([place] 5-325 Tablet) 1 TAB PO TID PRN pain #10 TAB
== END 2016-10-11 21:46 ==
LOC: ERH 20:51
DX: K04.7 Periapical abscess without sinus (principal)

== ENCOUNTER 2016-11-26 09:30 | Emergency (ER) | payer OTHER ==
[~2016-11-26] VITALS: Ht 170.2 cm; Wt 72.6 kg
[~2016-11-26 09:30] MED LIST changes: +CLEOCIN HCL300 M1 PO
[2016-11-26 09:38] VITALS: BP 127/75
[2016-11-26] MEDS ORDERED: CLEOCIN HCL300 M1 PO (09:52)
[2016-11-26] MEDS ORDERED: HYDROCODONE-IB1 EAC2 PO (09:52)
--- NOTE | 2016-11-26 09:54 | ED THROAT/DENTAL COMPLAINT ---
History of Present Illness General Chief Complaint: Sore Throat, Dental Pain Stated Complaint: DENTAL INFECTION Source: patient Exam Limitations: no limitations Vital Signs & Intake/Output Vital Signs & Intake/Output Vital Signs Date Time Temp Pulse Resp B/P Pulse O2 O2 Flow FiO2 Ox Delivery Rate 11/26 0938 97.2 87 16 127/75 98 Room Air Allergies Coded Allergies: amoxicillin (Intermediate, HIVES 10/01/16) Reconcile Medications Clindamycin HCl (Cleocin HCl) 300 MG CAPSULE 1 CAP PO TID dental infection Clindamycin HCl (Cleocin HCl) 300 MG CAPSULE 1 CAP PO TID infection Hydrocodone/Acetaminophen ([place] 5-325 Tablet) 5 MG-325 MG TABLET 1-2 TAB PO Q6P PRN PAIN Hydrocodone/Acetaminophen ([place] 5-325 Tablet) 5 MG-325 MG TABLET 1 TAB PO TID PRN pain Hydrocodone/Ibuprofen (Hydrocodone-Ibuprofen 7.5-200) 7.5 MG-200 MG TABLET 1 TAB PO TID pain L-Norgest/E.estradion-E.estrad (Season[place] 0.15-0.03-0.01 Tab) 0.15 MG-30 MCG ( 84)/10 MCG (7) TBDSPK.3MO 1 TAB PO DAILY CONTROL (Reported) Promethazine HCl 25 MG TABLET 1 TAB PO Q6P PRN NAUSEA/VOMITING Sertraline HCl 50 MG TABLET 1 TAB PO DAILY MENTAL HEALTH (Reported) Tramadol HCl 50 MG TABLET 1 TAB PO TID PRN PAIN (Reported) Triage Note: PT TO ED FOR DENTAL INFECTION, REPORTING SHE HAD DENTAL WORK APPROX 1 MONTH AGO, HAS APT WITH DENTIST MONDAY Triage Nurses Notes Reviewed? yes Onset: Abrupt Duration: day(s): Timing: recent history Injury Environment: home Severity: moderate, severe No Modifying Factors: none : No Patient currently breastfeeds: No HPI: 26-year-old female comes into emergency room for further evaluation of left lower dental pain. Patient reports that a few months ago she had dental trauma from being kicked in the face by a horse. Patient lost some teeth and had some teeth removed. Patient reports that she had x-rays performed and she saw her dentist multiple times and no fractures. Patient reports that she's had some infection issues to where the teeth were broken. Patient reports that she's had pain to the left lower dental region again over the past few days which has gotten more severe nature. Some subjective fevers and chills and body aches. Pain is moderate to severe. Continuous. Denies any other associated symptoms. (SHAHBAZ WOLFE) Past History Travel History Traveled to [place] past 21 day No Medical History Any Pertinent Medical History? 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 No (SHAHBAZ WOLFE) Review of Systems Review of Systems Constitutional: Reports: no symptoms. EENTM: Reports: see HPI. Respiratory: Reports: no symptoms. Cardiovascular: Reports: no symptoms. GI: Reports: no symptoms. Genitourinary: Reports: no symptoms. Musculoskeletal: Reports: no symptoms. Skin: Reports: no symptoms. Neurological/Psychological: Reports: no symptoms. Hematologic/Endocrine: Reports: no symptoms. Immunologic/Allergic: Reports: no symptoms. All Other Systems: Reviewed and Negative (SHAHBAZ WOLFE) Physical Exam Physical Exam General Appearance: well developed/nourished, no apparent distress, alert, awake Head: atraumatic, normal appearance Eyes: Bilateral: normal appearance. Ears: Bilateral: other (normal inspection). Nose: normal inspection Mouth/Throat: dental tenderness, no lymphadenopathy appreciated, no signs of infection currently, Neck: normal inspection, supple, full range of motion Cardiovascular/Respiratory: normal breath sounds, no respiratory distress Back: normal inspection Neurologic/Psych: awake, alert, oriented x 3, normal gait, normal mood/affect Skin: intact, normal color Core Measures ACS in differential dx? No Severe Sepsis Present: No Septic Shock Present: No (SHAHBAZ WOLFE) Progress Differential Diagnosis: aspirated tooth, carious tooth, epiglottitis, Ludwigs angina, meningitis, odontogenic abscess, timoteo-tonsillar abscess, pharyngeal for. body, stomatitis/gingivitis, strep pharyngitis, tooth fracture Plan of Care: 11/26/2016 11:24:41 AM Patient started back on antibiotics. Patient referred to dentist. Return if any other concerns worsening symptoms. Nontoxic-appearing and in no apparent distress upon discharge. (SHAHBAZ WOLFE) Departure Departure Disposition: HOME OR SELF CARE Condition: Stable Clinical Impression Primary Impression: Dental infection Referrals: PATIENT HAS NO PRIMARY CARE DR (PCP/Family) Additional Instructions: take Vicoprofen and amoxicillin as prescribed. Follow-up with your dentist. Return if any concerns worsening symptoms. Please go over all results of today's visit with your primary care doctor. Contact your primary care doctor to let them know you were here in the emergency room. There may be nonspecific findings which may not be related to your visit today here in the emergency room but may require further evaluation and chronic monitoring by your primary care doctor. If you had a laceration today the chance of foreign body always remains. You should follow-up with your primary care doctor for recheck in 3-5 days for a wound check. If you had an x-ray done there is a chance that a fracture could have been missed on initial read and you should follow-up with your primary care doctor for repeat x-rays if symptoms persist. If your blood pressure was elevated here in the emergency room please have rechecked by her primary care doctor within the next 48 hours by your primary care doctor. If you were prescribed a narcotic here in the emergency room or any type of controlled substances you're not allowed to drive while taking this medication or operate any type of heavy machinery. Narcotics can make you feel lightheaded dizziness nausea and can cause constipation. You may need to picker operator a stool softener. Thank you for choosing [facility] emergency room. Please return to the emergency room immediately if you have any other concerns worsening of symptoms. Departure Forms: Customer Survey General Discharge Information Prescriptions: Current Visit Scripts Hydrocodone/Ibuprofen (Hydrocodone-Ibuprofen 7.5-200) 1 TAB PO TID #15 TAB Clindamycin HCl (Cleocin HCl) 1 CAP PO TID #21 CAP (SHAHBAZ WOLFE) PA/CONVEYOR MECHANIC Co-Sign Statement Statement: ED Attending supervision documentation- [] I saw and evaluated the patient. I have also reviewed all the pertinent lab results and diagnostic results. I agree with the findings and the plan of care as documented in the PA's/CONVEYOR MECHANIC's documentation. [X] I have reviewed the ED Record and agree with the PA's/CONVEYOR MECHANIC's documentation. [] Additions or exceptions (if any) to the PAs/CONVEYOR MECHANIC's note and plan are summarized below: [] (PETE GARVEY,DRISS)
== END 2016-11-26 10:03 ==
LOC: ERH 09:30
DX: K04.7 Periapical abscess without sinus (principal)

== ENCOUNTER 2016-11-28 10:10 | Emergency (ER) | payer OTHER ==
[~2016-11-28] VITALS: Ht 170.2 cm; Wt 72.6 kg
[~2016-11-28 10:10] MED LIST changes: +HYDROCODONE-IB1 EAC2 PO
[2016-11-28 10:13] VITALS: BP 141/89
--- NOTE | 2016-11-28 10:24 | ED THROAT/DENTAL COMPLAINT ---
History of Present Illness General Chief Complaint: Sore Throat, Dental Pain Stated Complaint: DENTAL PAIN Source: patient Exam Limitations: no limitations Vital Signs & Intake/Output Vital Signs & Intake/Output Vital Signs Date Time Temp Pulse Resp B/P Pulse O2 O2 Flow FiO2 Ox Delivery Rate 11/28 1013 96.8 67 20 141/89 98 Room Air Allergies Coded Allergies: amoxicillin (Intermediate, HIVES 10/01/16) Reconcile Medications Clindamycin HCl (Cleocin HCl) 300 MG CAPSULE 1 CAP PO TID dental infection Clindamycin HCl (Cleocin HCl) 300 MG CAPSULE 1 CAP PO TID infection Doxycycline Hyclate 100 MG CAPSULE 1 CAP PO BID DENTAL INFECTION Hydrocodone/Acetaminophen ([place] 5-325 Tablet) 5 MG-325 MG TABLET 1-2 TAB PO Q6P PRN PAIN Hydrocodone/Acetaminophen ([place] 5-325 Tablet) 5 MG-325 MG TABLET 1 TAB PO TID PRN pain Hydrocodone/Ibuprofen (Hydrocodone-Ibuprofen 7.5-200) 7.5 MG-200 MG TABLET 1 TAB PO TID pain L-[place]/E.estradion-E.estrad ([place] 0.15-0.03-0.01 Tab) 0.15 MG-30 MCG ( 84)/10 MCG (7) TBDSPK.3MO 1 TAB PO DAILY CONTROL (Reported) Promethazine HCl 25 MG TABLET 1 TAB PO Q6P PRN NAUSEA/VOMITING Sertraline HCl 50 MG TABLET 1 TAB PO DAILY MENTAL HEALTH (Reported) Tramadol HCl 50 MG TABLET 1 TAB PO TID PRN PAIN (Reported) Tramadol HCl 50 MG TABLET 1 TAB PO BIDP PRN PAIN Triage Note: PT PRESENTS TO ER FOR DENTAL PAIN. PT STATES SHE WAS SEEN YESTERDAY AND STARTED ON CLINDAMYCIN FOR A DENTAL INFECTION AFTER BEING KICKED IN THE FACE BY HER HORSE. PT STATES SHE WAS TOLD IF IT WASN'T ANY BETTER TO COME BACK TODAY. PT STATES SHE FEELS LIKE HER FACE IS SWOLLEN TODAY AND HER MOUTH HURTS Triage Nurses Notes Reviewed? yes Onset: Gradual Duration: day(s): (4) Timing: no prior history Injury Environment: home Severity: moderate Severity Numbers: 7 No Modifying Factors: none : No Patient currently breastfeeds: No HPI: Patient is a 26-year-old female presenting to the emergency Department chief complaint of right upper and lower dental pain worsening over the past couple days. She reports recent history of dental injury and dental procedure done approximately one week ago. She was seen in the emergency department yesterday for similar symptoms and was started on antibiotics and pain medication. She reports that the pain medication she was given is not helping. She did notice a small increase in swelling in the left lower jawline. Denies any fevers or chills. No chest pain palpitations or shortness of breath. Pain is worse with palpation without side of the mouth. Still drinking and eating only was some discomfort on the left lower jawline. Denies any purulent drainage. She did report that she sign increasing redness to the actual incision site in her mouth. (UZMA MAYER) Past History Travel History Traveled to [place] past 21 day No Medical History Any Pertinent Medical History? 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 No (UZMA MAYER) Review of Systems Review of Systems Constitutional: Reports: no symptoms. Comments Review of systems: See HPI, All other systems negative. Constitutional, no chills fever or weight loss HEENT: No visual changes no sore throat no congestion Cardiovascular: No chest pain ,palpitatiON Skin, no jaundice no rashes Respiratory: No dyspnea cough sputum or hemoptysis GI: No nausea no vomiting : No dysuria No hematuria Muscle skeletal: no back pain, no neck pain, Neurologic: No numbness no confusion Psych: No stress anxiety Immunology: No splenectomy or history of AIDS (UZMA MAYER) Physical Exam Physical Exam General Appearance: well developed/nourished, no apparent distress, alert, awake , comfortable Mouth/Throat: THERE APPEARS TO BE A SMALL APHTHOUS ULCER APPROXIMATELY 5 MM IN SIZE NOTED IN THE LEFT LOWER GUMLINE OVER A POSTERIOR MOLAR SITE. nO DRAINAGE. nO ABSCESS IDENTIFIED. Comments: Well-developed well-nourished person in no acute distress HEENT: Pupils equally round and reactive to light and accommodation. Nose is atraumatic. External auditory canal and Tympanic membranes clear. Pharynx normal. No swelling or edema. No palpable abscess noted, no visualized abscess noted along the gumline bilaterally. Clearing secretions without difficulty. There is a small aphthous ulcer approximately 5 mm noted over the left lower gumline with the posterior molar used to be. No drainage. Tender to palpation over the left lower jawline. Neck: Supple, normal range of motion without pain or tenderness, no appreciated lymphadenopathy. Cardiovascular: Regular rate and rhythms no murmurs rubs or gallops, normal JVP Respiratory: Chest nontender. No respiratory distress.breath sounds clear to auscultation bilaterally Extremity: No edema Neuro: Alert oriented x3 Skin: No appreciable rash on exposed skin, skin is warm and dry. Psych: Mood and affect is normal, memory and judgment is normal. Core Measures ACS in differential dx? No Severe Sepsis Present: No Septic Shock Present: No (UZMA MAYER) Progress Differential Diagnosis: odontogenic abscess, timoteo-tonsillar abscess, stomatitis/ gingivitis, tooth fracture Plan of Care: PATIENT HAS ONLY BEEN ON ANTIBIOTICS FOR LESS THAN 24 HOURS. sHE WILL CONTINUE ANTIBIOTICS AND WE WILL CHANGE PAIN MEDICATION. sHE'LL FOLLOW-UP WITH HER dental surgeon tomorrow. Patient will return for any worsening symptoms or concerns. No obvious signs of dental abscess. Patient is nontoxic. (UZMA MAYER) Departure Departure Time of Disposition: 1055 Disposition: HOME OR SELF CARE Condition: Stable Clinical Impression Primary Impression: Dental infection Referrals: PATIENT HAS NO PRIMARY CARE DR (PCP/Family) Additional Instructions: Follow-up with your dentist as scheduled. Return on Monday if symptoms are worsening or no change. Take antibiotics as prescribed. Take Percocet as prescribed for pain. INCREASE fluids. Salt water gargles. Departure Forms: Customer Survey General Discharge Information Prescriptions: Current Visit Scripts Tramadol HCl 1 TAB PO BIDP PRN PAIN #8 TAB Doxycycline Hyclate 1 CAP PO BID #20 CAP (UZMA MAYER) PA/HOME CARE PHYSICAL THERAPIST Co-Sign Statement Statement: ED Attending supervision documentation- [] I saw and evaluated the patient. I have also reviewed all the pertinent lab results and diagnostic results. I agree with the findings and the plan of care as documented in the PA's/HOME CARE PHYSICAL THERAPIST's documentation. [X] I have reviewed the ED Record and agree with the PA's/HOME CARE PHYSICAL THERAPIST's documentation. [] Additions or exceptions (if any) to the PAs/HOME CARE PHYSICAL THERAPIST's note and plan are summarized below: [] (COLE HORAN DO)
[2016-11-28] MEDS ORDERED: TRAMADOL HCL50 M1 PO (10:59)
[2016-11-28] MEDS ORDERED: DOXYCYCLINE HY100 M2 PO (10:59)
== END 2016-11-28 11:16 ==
LOC: ERH 10:10
DX: K04.7 Periapical abscess without sinus (principal)